=== PATIENT | male | born 1985 | race African-American/Black ===

== ENCOUNTER 2025-09-09 12:35 | Emergency (ER) | payer MEDICAID ==
[~2025-09-09] VITALS: Ht 182.9 cm; Wt 92.0 kg
[~2025-09-09 12:35] MED LIST: ALBU6.7H3
[2025-09-09 12:38] VITALS: O2SAT 100
[2025-09-09 12:51] VITALS: BP 115/95; PULSE 88; RESP 16; TEMP 36.9; O2SAT 99
== END 2025-09-09 15:03 | disposition left against medical advice (07) ==
LOC: ER 12:35
DX: M25.511 Pain in right shoulder (principal); M54.50 Low back pain, unspecified
CPT/HCPCS: 99281